=== PATIENT | male | born 1980 | race Caucasian/White ===

== ENCOUNTER 2024-10-28 17:48 | Inpatient (IN) | payer MEDICARE, OTHER ==
[~2024-10-28] VITALS: Ht 175.3 cm; Wt 25.2 kg
--- NOTE | 2024-10-28 21:09 | DVH ---
CLINICAL INDICATION: r/o fx TECHNIQUE: 2 views of the left tib-fib. Comparison: None FINDINGS/IMPRESSION: Displaced acute traumatic fractures of the left mid tibia and left mid fibula. Moderate soft tissue swelling around the leg.
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
--- NOTE | 2024-10-28 23:00 | DVH ---
EXAM: XY CHEST XRAY 1 VIEW CLINICAL HISTORY: pre-op TECHNIQUE: Single AP view of the chest WID: COMPARISON: None FINDINGS: Lines and tubes: None Chest: The heart size and pulmonary vasculature is within normal limits. No pleural effusion, pneumothorax, or consolidation. The osseous structures are grossly intact. Multilevel thoracic spondylosis. IMPRESSION: No acute cardiopulmonary abnormality.
[2024-10-28] MEDS: MORPHINE SULFATE INJ 2 MG/ml SYRG IV ONE (23:13)
[2024-10-29] VITALS (7 sets, daily range): BP systolic 110–127; BP diastolic 64–82; PULSE 84–103; RESP 16–20; TEMP 97.9–98.2; O2SAT 92–96
[2024-10-29] MEDS ORDERED: HYDROcodone-ACET 5/325MG TAB PO PRN
[2024-10-29] MEDS ORDERED: ACETAMINOPHEN 325 MG TAB PO PRN
[2024-10-29] MEDS: HALOPERIDOL LACTATE 5 MG/ML INJ VIAL IM ONE (00:51)
[2024-10-29] MEDS: LORazepam 2MG/ML-1ML VIAL IM ONE (00:51)
[2024-10-29] MEDS: diphenhdrAMINE HCL 50 MG/1 ML VL IM ONE (00:51)
[2024-10-29] MEDS: KETAMINE 50mg/ML 1ml syringe IM ONE (01:29)
[2024-10-29] MEDS: KETAMINE 50mg/ML 10ml Vial 10 ML ONE (01:51)
[2024-10-29 02:00] LABS: Basophils # (auto) 0 10 ^3/uL (0-0.2); Basophils % (auto) 0.2 % (0.0-2.0); Eosinophils # (auto) 0 10 ^3/uL (0-0.8); Eosinophils % (auto) 0.1 % (0.0-7.0); Hemoglobin 13.4 g/dL (13.5-17.5); Lymphocytes # (auto) 0.7 10 ^3/uL (0.4-5.4); Lymphocytes % (auto) 4.9 % (10.0-50.0); Mean Corpuscular Hemoglobin 28.2 pg (28.0-32.0); Mean Corpuscular Hgb Conc. 32.7 g/dL (32.0-36.0); Mean Corpuscular Volume 86.3 fL (80.0-100.0); Monocytes # (auto) 0.9 10 ^3/uL (0-1.3); Monocytes % (auto) 6.2 % (0.0-12.0); Neutrophils # (auto) 12.7 10 ^3/uL (1.6-8.6); Neutrophils % (auto) 88.6 % (37.0-80.0); Platelet Count (auto) 184 10^3/uL (140-450); Red Blood Cells 4.75 10^6/uL (4.5-5.90); White Blood Cell 14.3 10^3/uL (4.4-10.8)
[2024-10-29] MEDS: MORPHINE SULFATE INJ 2 MG/ml SYRG IV PRN (02:15)
[2024-10-29 02:18] LABS: Alanine Aminotransferase 11 U/L (7-40); Albumin 4.6 g/dL (3.2-4.8); Alkaline Phosphatase 76 U/L (46-116); Anion Gap 8 (5-15); Aspartate Aminotransferase 15 U/L (13-40); Blood Urea Nitrogen 16 mg/dL (9-23); Calcium 9.7 mg/dL (8.7-10.4); Carbon Dioxide 23 mmol/L (20-31); Glucose 106 mg/dL (74-106); Sodium 138 mmol/L (136-145)
[2024-10-29 02:19] LABS: Bilirubin, Total 0.7 mg/dL (0.2-1.0); Total Protein 7.1 g/dL (5.7-8.2)
[2024-10-29 02:22] LABS: Blood Alcohol < 3.0 mg/dL (<10); Chloride 107 mmol/L (98-107)
[2024-10-29 02:24] LABS: INR 0.98 (0.9-1.15); Partial Thromboplastin Time 22.4 SEC (24.5-34.5); Prothrombin Time 10.4 sec (9.3-11.8)
[2024-10-29] MEDS: SODIUM CHLORIDE 0.9% 1,000 ML IV ONE (02:30)
--- NOTE | 2024-10-29 03:38 | DVH ---
EXAM: XY L ANKLE 2 VIEW XRAY CLINICAL INDICATION: POST REDUCTION TECHNIQUE: XY L ANKLE 2 VIEW XRAY Comparison: 10-28-24 FINDINGS/IMPRESSION: Displaced acute traumatic fractures of the left mid tibia and left mid fibula with improved anotomic aligment status post reduction. Moderate soft tissue swelling around the leg.
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
[2024-10-29] MEDS: LORazepam 2MG/ML-1ML VIAL IV PRN (04:55)
[2024-10-29] MEDS: ONDANSETRON HCL 4 MG/2 ML VIAL IV PRN (08:05)
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
[2024-10-29] MEDS ORDERED: IBUPROFEN 400 MG TAB PO PRN (17:00)
[2024-10-30] VITALS (7 sets, daily range): BP systolic 104–129; BP diastolic 57–75; PULSE 90–109; RESP 17–20; TEMP 97.9–99.5; O2SAT 95–98
[2024-10-30 07:45] LABS: Basophils # (auto) 0 10 ^3/uL (0-0.2); Basophils % (auto) 0.5 % (0.0-2.0); Eosinophils # (auto) 0.1 10 ^3/uL (0-0.8); Eosinophils % (auto) 1.6 % (0.0-7.0); Hematocrit 38.3 % (41.0-53.0); Hemoglobin 12.8 g/dL (13.5-17.5); Lymphocytes # (auto) 1.4 10 ^3/uL (0.4-5.4); Lymphocytes % (auto) 17.5 % (10.0-50.0); Mean Corpuscular Hemoglobin 28.6 pg (28.0-32.0); Mean Corpuscular Hgb Conc. 33.3 g/dL (32.0-36.0); Mean Corpuscular Volume 85.7 fL (80.0-100.0); Monocytes # (auto) 0.9 10 ^3/uL (0-1.3); Monocytes % (auto) 10.5 % (0.0-12.0); Neutrophils # (auto) 5.7 10 ^3/uL (1.6-8.6); Neutrophils % (auto) 69.9 % (37.0-80.0); Nucleated Red Blood Cells % 0.1 %; Platelet Count (auto) 145 10^3/uL (140-450); Red Blood Cells 4.46 10^6/uL (4.5-5.90); Red Cell Distribution Width 14.4 % (11.8-14.3); White Blood Cell 8.2 10^3/uL (4.4-10.8)
[2024-10-30 07:51] LABS: Potassium 3.7 mmol/L (3.5-5.1); Sodium 140 mmol/L (136-145)
[2024-10-30 07:52] LABS: Anion Gap 7 (5-15); Calcium 9.4 mg/dL (8.7-10.4); Carbon Dioxide 25 mmol/L (20-31)
[2024-10-30 07:57] LABS: Glucose 91 mg/dL (74-106)
[2024-10-30 07:58] LABS: Chloride 108 mmol/L (98-107)
[2024-10-30 09:49] LABS: BUN/Creatinine Ratio 15.2 (10.0-20.0); Blood Urea Nitrogen 12 mg/dL (9-23)
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
[2024-10-30] MEDS: LORazepam 2MG/ML-1ML VIAL IV ONE (15:46)
[2024-10-30 16:04] LABS: Urine Bacteria None Seen /hpf (None Seen)
[2024-10-30 16:34] LABS: Cannabinoid Screen, Urine Neg (NEGATIVE); Opiate Scree,Urine Neg (NEGATIVE)
[2024-10-30 16:41] LABS: Amphetamine Screen, Urine Neg (NEGATIVE); Barbiturate Scree,Urine Neg (NEGATIVE); Benzodiazephine Screen, Urine Neg (NEGATIVE); Cocaine Screen, Urine Neg (NEGATIVE); Phencyclidine Screen, Urine Neg (NEGATIVE)
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
[2024-10-30 16:48] LABS: Urine Amorphous Crystal FEW /hpf (None Seen); Urine Blood Negative /uL (Negative); Urine Clarity Clear (Clear); Urine Color Yellow (Yellow); Urine Mucus FEW (None Seen); Urine Protein, UAD Negative (Negative); Urine Specific Gravity 1.024 (1.001-1.035); Urine Squamous Epithelial Cell None Seen /hpf (<5); Urine Urobilinogen Normal (Negative); Urine WBC 1 /hpf (0 - 3)
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
[2024-10-30] MEDS ORDERED: ACETAMINOPHEN 325 MG TAB PO PRN (20:30)
[2024-10-30] MEDS ORDERED: IBUPROFEN 400 MG TAB PO PRN (20:30)
[2024-10-31] VITALS (7 sets, daily range): BP systolic 104–128; BP diastolic 63–76; PULSE 76–98; RESP 17–20; TEMP 97.9–98.5; O2SAT 95–98
[2024-10-31] MEDS: FOLIC ACID 1 MG, MULTIPLE VITAMIN 10 ML, MAGNESIUM SULF SDV 50% 8 MEQ, THIAMINE INJ 100... INJ SCH (11:17)
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
[2024-11-01 01:00] VITALS: BP 115/68; PULSE 78; RESP 18; TEMP 98.1; O2SAT 97
[2024-11-01 08:00] VITALS: PULSE 74; RESP 17; O2SAT 100
[2024-11-01] MEDS: IBUPROFEN 400 MG TAB PO SCH (09:00)
[2024-11-01] MEDS: ACETAMINOPHEN 325 MG TAB PO SCH (09:00)
[2024-11-01 09:46] VITALS: BP 119/77; PULSE 74; RESP 17; TEMP 97.9; O2SAT 100
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
[2024-11-01] MEDS: THIAMINE HCL 100 MG TAB PO ONE (18:31)
[2024-11-01] MEDS: MAGNESIUM OXIDE 400 MG TAB PO ONE (18:31)
[2024-11-01] MEDS: MULTIPLE VITAMIN TAB PO ONE (18:31)
[2024-11-01 20:00] VITALS: RESP 18
[2024-11-01 21:00] VITALS: BP 118/73; PULSE 83; RESP 19; TEMP 98; O2SAT 96
[2024-11-01] MEDS: OLANZapine 5 MG TAB PO SCH (21:13)
[2024-11-01] MEDS: risperiDONE 1 MG TAB PO SCH (21:14)
[2024-11-02] VITALS (8 sets, daily range): BP systolic 103–112; BP diastolic 64–76; PULSE 83–106; RESP 18–20; TEMP 97.9–98.4; O2SAT 96–97
[2024-11-02 06:16] LABS: Chloride 106 mmol/L (98-107); Potassium 3.7 mmol/L (3.5-5.1); Sodium 140 mmol/L (136-145)
[2024-11-02 06:17] LABS: Anion Gap 7 (5-15); Calcium 9.8 mg/dL (8.7-10.4); Carbon Dioxide 27 mmol/L (20-31)
[2024-11-02 06:22] LABS: BUN/Creatinine Ratio 17.1 (10.0-20.0); Blood Urea Nitrogen 14 mg/dL (9-23); Glucose 104 mg/dL (74-106)
[2024-11-02] MEDS: MAGNESIUM OXIDE 400 MG TAB PO SCH (10:01)
[2024-11-02] MEDS: MULTIPLE VITAMIN TAB PO SCH (10:01)
[2024-11-02] MEDS: THIAMINE HCL 100 MG TAB PO SCH (10:01)
[2024-11-02] MEDS: FOLIC ACID 1 MG TAB PO SCH (10:01)
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
[2024-11-03] VITALS (7 sets, daily range): BP systolic 101–119; BP diastolic 61–78; PULSE 91–103; RESP 17–20; TEMP 97–98.7; O2SAT 94–98
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
[2024-11-03] MEDS: OLANZapine 5 MG TAB PO SCH (13:02)
[2024-11-04 01:00] VITALS: BP 100/45; PULSE 76; RESP 17; TEMP 97.5; O2SAT 96
[2024-11-04 05:00] VITALS: BP 109/66; PULSE 77; RESP 17; TEMP 97.7; O2SAT 96
[2024-11-04 08:39] VITALS: BP 110/64; PULSE 96; RESP 18; TEMP 98; O2SAT 97
[2024-11-04] MEDS: ENOXAPARIN SOD 40 MG/0.4 ML SYRINGE SC SCH (11:45)
[2024-11-04 13:00] VITALS: BP 110/69; PULSE 87; RESP 18; TEMP 98; O2SAT 97
[2024-11-04 17:00] VITALS: BP 121/71; PULSE 91; RESP 18; TEMP 97.9; O2SAT 97
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
[2024-11-04 20:00] VITALS: RESP 18
[2024-11-05 05:00] VITALS: BP 120/73; PULSE 88; RESP 18; TEMP 97.9; O2SAT 98
[2024-11-05 08:51] VITALS: BP 119/75; PULSE 79; RESP 18; TEMP 97.8; O2SAT 97
[2024-11-05] MEDS ORDERED: OLANZapine 5 MG TAB PO PRN (12:00)
[2024-11-05 13:00] VITALS: BP 122/63; PULSE 81; RESP 18; TEMP 97.9; O2SAT 98
--- NOTE | 2024-11-05 13:42 | TELE.CONS ---
PSYCHIATRY REASSESSMENT Date: 11/05/24 1300 S: The patient was seen and evaluated at [facility] via telepsychiatry platform. 44 yr old male admitted on 10/28 for tib/fib displaced fracture and recommended for surgical fixation. Patient had refused surgery and was seen by psychiatrist Dr Shipley on 11/01 and diagnosed with unspecified psychotic disorder. Today, he reported that he hasn't been able to sleep. He had been living by [place] and is worried that it is no longer available for him to live there. He stated that he is in a left leg cast. He stated he is not taking any medication at the hospital, saying "I don't believe in medicine." He said his pain is manageable without medicine. He denied being treated for mental illness. He had received risperdal in the hospital without adverse effects. He denied having HI/AVH. MSE: Alert, oriented male lying in bed eating lunch cooperative speech-regular rate, rhythm, volume Mood-"okay" Affect-blunted, congruent Tht process-tangential and somewhat disorganized Tht Content- Denied having suicidal or homicidal ideation, plan or intent. denied AVH Insight-poor Judgment-poor Impulse control-intact Diagnosis: UNSPECIFIED PSYCHOTIC DISORDER Assessment: This 31 yr old male appears to suffer from psychosis (likely schizophrenia) and is disorganized. He would benefit from continuing on risperdal. If he continues to refuse the oral dose, I recommend offering the long acting injectable as this would allow him a steady state of the medication for a few weeks at a time. This would be ideal for him as he has elected to not have surgery on his tib/fib fracture so needs to be strictly non-weight bearing for a few weeks so that his leg can heal. He likely would benefit from a stay at a SNF while he is recovering since he is likely unable to prevent weight bearing since he is homeless. Plan: 1. Medical Decision Making capability. The patient does not appear to have medical decision making capability. 2. Legal-voluntary 3. Medications- recommend continuing Risperdal 1mg BID or if patient is continuing to refuse his medication, a long acting injectable would help him maintain a more steady state of antipsychotic. There are two options for risperidone long acting subcutaneous injections: I recommend either Perseris 90mg SC qmonth or Uzedy 75mg SC qmonth. I recommend starting Ativan 2 mg qhs for anxiety. This may be given initially and then administer the Perseris OR Uzedy shortly after. 4. Case discussed with hospitalist Dr Henderson. 5. Please contact psychiatry if further follow up or reevaluation is desired. Yes RUBY SHIPLEY MD Nov 05, 2024 13:02
[2024-11-05 17:00] VITALS: BP 125/71; PULSE 64; RESP 18; TEMP 97.9; O2SAT 99
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
[2024-11-05 20:00] VITALS: RESP 18
[2024-11-05 21:00] VITALS: BP 135/77; PULSE 86; RESP 18; O2SAT 100
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
[2024-11-06 20:00] VITALS: PULSE 95; RESP 18
[2024-11-06 21:00] VITALS: BP 119/77; PULSE 90; RESP 20; TEMP 98; O2SAT 95
[2024-11-07] VITALS (7 sets, daily range): BP systolic 105–125; BP diastolic 69–83; PULSE 84–98; RESP 18–20; TEMP 97.9–98.3; O2SAT 95–97
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
[2024-11-08 05:00] VITALS: BP 107/54; PULSE 76; RESP 20; TEMP 97.8; O2SAT 96
[2024-11-08 09:00] VITALS: BP_SYST 114; BP_SYST 126; BP_DIAS 63; BP_DIAS 79; PULSE 93; PULSE 96; RESP 18; RESP 20; TEMP 98; TEMP 98.8; O2SAT 94; O2SAT 96
[2024-11-08 13:00] VITALS: BP 120/76; PULSE 86; RESP 18; TEMP 97.8; O2SAT 92
[2024-11-08 17:02] VITALS: BP 107/70; PULSE 90; RESP 18; TEMP 97.9; O2SAT 97
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
[2024-11-08 20:00] VITALS: PULSE 86; RESP 19; O2SAT 96
[2024-11-08 21:00] VITALS: BP 100/59; PULSE 86; RESP 19; TEMP 98.2; O2SAT 96
[2024-11-09] VITALS (8 sets, daily range): BP systolic 103–127; BP diastolic 57–90; PULSE 75–92; RESP 16–19; TEMP 97.8–98.6; O2SAT 93–97
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
[2024-11-10] VITALS (7 sets, daily range): BP systolic 87–130; BP diastolic 52–81; PULSE 60–89; RESP 18–20; TEMP 98.1–98.5; O2SAT 93–100
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
[2024-11-11] VITALS (7 sets, daily range): BP systolic 90–111; BP diastolic 52–74; PULSE 62–90; RESP 17–20; TEMP 97.4–98.4; O2SAT 94–100
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
[2024-11-11] MEDS: LORazepam 0.5 MG TAB PO PRN (21:49)
[2024-11-12] VITALS (7 sets, daily range): BP systolic 88–122; BP diastolic 47–82; PULSE 67–96; RESP 16–18; TEMP 98–98.7; O2SAT 93–96
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
[2024-11-13] VITALS (7 sets, daily range): BP systolic 109–144; BP diastolic 76–84; PULSE 76–97; RESP 16–20; TEMP 97.4–98.2; O2SAT 93–99
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
[2024-11-14] VITALS (7 sets, daily range): BP systolic 113–139; BP diastolic 69–79; PULSE 51–89; RESP 17–20; TEMP 98–98.7; O2SAT 90–100
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
== END 2024-11-14 18:08 | DRG 563 ==
LOC: ER 17:54 → EDBD 23:55 → OVERFLOW 23:55 → WEST WING 10-29 12:25
PROVIDERS: ADMIT Student in an Organized Health Care Education/Training Program; ATTEND Student in an Organized Health Care Education/Training Program
PROC: 0QSHXZZ Reposition Left Tibia, External Approach (ICD-10-PCS; principal; 2024-10-28)
PROC: 0QSKXZZ Reposition Left Fibula, External Approach (ICD-10-PCS; 2024-10-28)
DX: S82.202A Unspecified fracture of shaft of left tibia, initial encounter for closed fracture (principal); Z59.00 Homelessness unspecified; S82.402A Unspecified fracture of shaft of left fibula, initial encounter for closed fracture; D72.829 Elevated white blood cell count, unspecified; Y92.410 Unspecified street and highway as the place of occurrence of the external cause; V03.90XA Pedestrian on foot injured in collision with car, pick-up truck or van, unspecified whether traffic or nontraffic accident, initial encounter; Y93.89 Activity, other specified; Y99.8 Other external cause status
CPT/HCPCS: 36415; 70450; 71045; 73590; 73600; 80048; 80053; 80307; 80320; 81001; 83735; 84443; 85025; 85610; 85730; 86850; 86900; 86901; 97163; 99291; G0378; J2405